=== PATIENT | male | born 1935 | race Caucasian/White ===

== ENCOUNTER → 2016-06-21 | Outpatient (CLI) | payer MEDICARE ==
[~2016-06-21] MED LIST: ASPIR 8181 MG PO; CATAPRES 0.1MG0.1 MG PO; FENOFIBRATE145 MG PO; GLUCOTROL 10 MG10 MG PO; GLYCOTROL CAPS1 EACH IM; JANUVIA50 MG PO; LEVEMIR100 UNIT/1 SQ; NORCO 5-325 TA1 EACH PO; NORVASC 5 MG TAB5 MG PO; NOVOLOG100 UNIT/1 SQ; PRESERVISION A1 EAC1 PO; SIMVASTATIN20 MG PO; TOPROL XL 25 MG25 MG PO; VITAMIN D2400 UNIT PO
== END ==
LOC: KOH-I 15:20
DX: M54.2 Cervicalgia (principal); M47.812 Spondylosis without myelopathy or radiculopathy, cervical region
CPT/HCPCS: 72040